=== PATIENT | female | born 1945 | race Caucasian/White ===

== ENCOUNTER 2017-07-18 16:27 | Outpatient (CLI) | payer MEDICARE, OTHER ==
[2013-02-16 21:16] VITALS: BP 162/58
[2017-07-18 16:54] LABS: BASOPHILS % 0.6 (0.0-1.5); EOSINOPHILS % 4.3 % (0.0-6.8); MEAN CORPUSCULAR HEMOGLOBIN 28.7 pg (28.0-34.0); MEAN CORPUSCULAR VOLUME 95.6 fl (80.0-100.0); MONOCYTES % 5.8 % (0.0-11.0); NEUTROPHILS # 3.6 # k/uL (1.4-7.7)
[2017-07-18 18:07] LABS: eGFR (African) > 60; eGFR (Non-African) > 60
== END 2017-07-18 16:30 ==
LOC: LAB 16:27
PROVIDERS: ATTEND Family Medicine
DX: I10 Essential (primary) hypertension (principal); E11.9 Type 2 diabetes mellitus without complications
CPT/HCPCS: 36415; 80053; 83036; 85025

== ENCOUNTER 2018-09-07 08:06 | Outpatient (CLI) | payer MEDICARE, OTHER ==
[2013-02-16 21:16] VITALS: BP 162/58
== END 2018-09-07 08:08 ==
LOC: LAB 08:06
PROVIDERS: ATTEND Family Medicine
DX: E78.5 Hyperlipidemia, unspecified (principal); E11.9 Type 2 diabetes mellitus without complications
CPT/HCPCS: 36415; 80061; 83036

== ENCOUNTER 2019-05-03 16:02 | Outpatient (CLI) | payer MEDICARE, OTHER ==
[2013-02-16 21:16] VITALS: BP 162/58
[2019-05-03 16:18] LABS: BASOPHILS % 0.4 % (0.0-1.5); NEUTROPHILS # 5.6 # k/uL (1.4-7.7)
[2019-05-03 17:15] LABS: eGFR (Non-African) > 60
[2019-05-03 17:16] LABS: A1C 6.2 % (<5.7)
== END 2019-05-03 16:07 ==
LOC: LAB 16:02
PROVIDERS: ATTEND Family Medicine
DX: E11.9 Type 2 diabetes mellitus without complications (principal); I10 Essential (primary) hypertension; D50.9 Iron deficiency anemia, unspecified
CPT/HCPCS: 36415; 80053; 83036; 83540; 85025